=== PATIENT | male | born 2000 | race Caucasian/White ===

== ENCOUNTER 2021-03-24 15:22 | Emergency (ER) | payer OTHER, SELFPAY ==
[2021-03-24 15:25] VITALS: BP 148/87; PULSE 87; RESP 18; TEMP 36.5; O2SAT 100
[2021-03-24 15:48] LABS: Basophils Absolute Auto 0.1 K/mm3 (0.0-0.1); Basophils Percent Auto 0.6 % (0.2-1.2); Eosinophils Absolute Auto 0.3 K/mm3 (0-0.3); Eosinophils Percent Auto 3.6 % (0-4.4); Hematocrit 49.5 % (42.0-52.0); Hemoglobin 16.4 g/dL (14.0-18.0); Immature Granulocyte Absolute 0.03 K/mm3 (0.00-0.031); Immature Granulocyte Percent A 0.4 % (0-0.5); Lymphocytes Percent Auto 37.2 % (18.3-44.2); Mean Corpuscular HGB Conc 33.1 g/dl (32-36); Mean Corpuscular Hemoglobin 30.3 pg (26-34); Mean Corpuscular Volume 91.5 fl (80-100); Mean Platelet Volume 9.6 fl (7.4-10.4); Monocytes Absolute Auto 0.7 K/mm3 (0.1-0.6); Monocytes Percent Auto 8.2 % (2.6-8.5); Neutrophils Absolute Auto 4.2 K/mm3 (1.3-6.7); Platelet Count Result 273 k/mm3 (150-375); Red Blood Count 5.41 M/mm3 (4.6-6.20); Red Cell Distribution Width 13.7 % (11.5-14.5); White Blood Count 8.3 K/mm3 (4.5-10.0)
[2021-03-24 16:02] LABS: Alanine Aminotransferase 44 U/L (4-50); Albumin Level 4.7 g/dL (3.5-5.1); Alkaline Phosphatase 86 U/L (38-126); Anion Gap 11 mmol/L (8-16); Aspartate Amino Transferase 33 U/L (17-59); Bilirubin,Total 0.7 mg/dL (0.2-1.3); Blood Urea Nitrogen 12 mg/dL (9-20); Carbon Dioxide 26 mmol/L (22-30); Chloride 103 mmol/L (98-107); Estimated CRCL calculation 128 ml/min; Estimated Glomerular Filt Rate > 60; Glucose 105 mg/dL (75-110); Potassium 4.3 mmol/L (3.4-5.0); Sodium 140 mmol/L (137-145)
[2021-03-24 16:07] LABS: Prothrombin Time 13.6 Seconds (11.1-14.7)
[2021-03-24 16:08] LABS: Partial Thromboplastin Time 26.6 SECONDS (22.3-36.8)
[2021-03-24 17:13] VITALS: BP 148/87; PULSE 87; RESP 18; TEMP 36.5; O2SAT 100
[2021-03-24 17:23] VITALS: BP 131/77; PULSE 52
[2021-03-24 17:24] VITALS: BP 137/84; PULSE 57
[2021-03-24 17:25] VITALS: BP 140/81; PULSE 68
--- NOTE | 2021-03-24 18:00 | ED.GENADULT ---
HPI - General Adult General Chief complaint: Unspecified Stated complaint: Rectal Bleeding Time Seen by Provider: 03/24/21 17:10 Source: patient and RN notes reviewed Mode of arrival: ambulatory Limitations: no limitations History of Present Illness HPI narrative: Patient is a 20-year-old male who presents to emergency department for evaluation of rectal bleeding over the last week notes history of external hemorrhoids notes that on wiping he has noticed small amounts of blood was sent over for urgent care for evaluation patient denies pain injury trauma or other complaints presents in no distress Related Data Allergies Allergy/AdvReac Type Severity Reaction Status Date / Time Penicillins Allergy Unknown Verified 03/24/21 17:11 Review of Systems Review of Systems: All systems reviewed & are unremarkable except as noted in HPI and below PMFSH Past Medical History Medical History Healthy adult male Surgical History Surgical History No history of previous surgery Social History Social History Smoking status: Light tobacco smoker Gender identity (if verbalized by the patient): Male Exam Narrative: Exam Narrative: GENERAL: Well-appearing, well-nourished, and in no acute distress. HEAD: Normocephalic, atraumatic. EYES: PERRLA and EOMI. ENT: Nares clear, no rhinorrhea or epistaxis. Mucous membranes moist. CHEST: Clear to auscultation. No respiratory distress. No wheezes rales or rhonchi HEART: Regular rate and rhythm. No murmur heard. Normal peripheral pulses. ABDOMEN: Soft, nontender, nondistended EXTREMITIES: Normal range of motion. No edema. SKIN: Warm, dry, no rash. NEURO: No focal deficits. Alert and oriented x3. PSYCH: Normal mood and affect. Course Course Emergency Course: Patient in no distress nontender abdominal exam afebrile nontoxic-appearing no high risk changes in the blood work will be discharged home treated for internal hemorrhoids is likely etiology of his bleeding provided with reasons to return. Patient agrees with this plan Vital Signs Vital signs: Vital Signs Temperature 97.7 F 03/24/21 15:25 Pulse Rate 87 03/24/21 15:25 Respiratory Rate 18 03/24/21 15:25 Blood Pressure 148/87 H 03/24/21 15:25 Pulse Oximetry 100 03/24/21 15:25 Temperature 97.7 F 03/24/21 17:13 Pulse Rate 68 03/24/21 17:25 Respiratory Rate 18 03/24/21 17:13 Blood Pressure 140/81 03/24/21 17:25 Pulse Oximetry 100 03/24/21 17:13 Medical Decision Making MDM Narrative Medical decision making narrative: Patient presented with GI bleeding nontender abdominal exam no high risk changes in the blood work felt appropriate for outpatient reevaluation will be referred to GI for further evaluation Vital Signs Vital Signs: Vital Signs Temperature 97.7 F 03/24/21 15:25 Pulse Rate 87 03/24/21 15:25 Respiratory Rate 18 03/24/21 15:25 Blood Pressure 148/87 H 03/24/21 15:25 Pulse Oximetry 100 03/24/21 15:25 Temperature 97.7 F 03/24/21 17:13 Pulse Rate 68 03/24/21 17:25 Respiratory Rate 18 03/24/21 17:13 Blood Pressure 140/81 03/24/21 17:25 Pulse Oximetry 100 03/24/21 17:13 Lab Data Result diagrams: 03/24/21 15:38 03/24/21 15:33 Labs: Lab Results 03/24/21 03/24/21 03/24/21 Range/Units 15:33 15:33 15:38 WBC 8.3 (4.5-10.0) K/mm3 RBC 5.41 (4.6-6.20) M/mm3 Hgb 16.4 (14.0-18.0) g/dL Hct 49.5 (42.0-52.0) % MCV 91.5 (80-100) fl MCH 30.3 (26-34) pg MCHC 33.1 (32-36) g/dl RDW 13.7 (11.5-14.5) % Plt Count 273 (150-375) k/mm3 MPV 9.6 (7.4-10.4) fl Immature Gran % (Auto) 0.4 (0-0.5) % Neut % (Auto) 50.0 (45.5-73.1) % Lymph % (Auto) 37.2 (18.3-44.2) % [place] % (Auto) 8.2 (2.6-8.5) % Eos % (Aut
== END 2021-03-24 18:12 | disposition home or self-care (01) ==
PROVIDERS: Emergency Provider Emergency Medicine
DX: K62.5 Hemorrhage of anus and rectum (principal)
CPT/HCPCS: 36415; 80053; 85025; 85610; 85730; 86850; 86900; 86901; 99283